=== PATIENT | female | born 1980 | race African-American/Black ===

== ENCOUNTER 2018-05-27 21:04 | Emergency (ER) | payer OTHER ==
[~2018-05-27] VITALS: Ht 165.1 cm; Wt 121.6 kg
[~2018-05-27 21:04] MED LIST: KEFLEX500 M1 PO
[2018-05-27 21:27] VITALS: BP 128/79
--- NOTE | 2018-05-27 22:06 | ED GENERAL ADULT ---
History of Present Illness General Chief Complaint: General Adult Stated Complaint: "2ND RABIES SHOT" Source: patient Exam Limitations: no limitations Vital Signs & Intake/Output Vital Signs & Intake/Output Vital Signs Date Time Temp Pulse Resp B/P B/P Pulse O2 O2 Flow FiO2 Mean Ox Delivery Rate 05/27 2215 Room Air 05/27 2127 97.0 97 20 128/79 98 Room Air ED Intake and Output 05/28 0000 05/27 1200 Intake Total Output Total Balance Patient 268 lb Weight Weight Reported by Patient Measurement Method Allergies Coded Allergies: No Known Allergies (05/24/18) Reconcile Medications Cephalexin (Keflex) 500 MG CAPSULE 1 CAP PO TID skin wound Triage Note: PT HERE FOR 2ND RABIES SHOT. DENIES ANY PAIN Triage Nurses Notes Reviewed? yes Onset: Abrupt Duration: day(s): (3), constant, continues in ED Timing: single episode today Injury Environment: home : Yes Patient currently breastfeeds: No HPI: 37-year-old female presents for her second rabies vaccine. She was seen here 3 days ago after a dog bite and received the immunoglobulin and vaccine she was told to return in 3 days for the second vaccine. She tolerated the first round well without complication. (Kyree Costello) Past History Travel History Traveled to [place] past 21 day No Medical History Any Pertinent Medical History? see below for history Neurological: NONE EENT: NONE Cardiovascular: NONE Respiratory: NONE Gastrointestinal: NONE Hepatic: NONE Renal: NONE Musculoskeletal: NONE Psychiatric: depression Endocrine: NONE Blood Disorders: NONE Cancer(s): NONE IMMIGRATION SPECIALIST/Reproductive: NONE Tetanus Vaccine: 05/24/18 Surgical History Surgical History: non-contributory Psychosocial History What is your primary language Latvian Tobacco Use: Never used ETOH Use: denies use Illicit Drug Use: denies illicit drug use Family History Hx Contributory? No (Kyree Costello) Review of Systems Review of Systems Constitutional: Reports: no symptoms. EENTM: Reports: no symptoms. Respiratory: Reports: no symptoms. Cardiovascular: Reports: no symptoms. GI: Reports: no symptoms. Genitourinary: Reports: no symptoms. Musculoskeletal: Reports: no symptoms. Skin: Reports: no symptoms. Neurological/Psychological: Reports: no symptoms. Hematologic/Endocrine: Reports: no symptoms. Immunologic/Allergic: Reports: no symptoms. All Other Systems: Reviewed and Negative (Kyree Costello) Physical Exam Physical Exam General Appearance: well developed/nourished, no apparent distress, alert, awake Head: atraumatic, normal appearance Eyes: Bilateral: normal appearance, EOMI. Ears, Nose, Throat: hearing grossly normal Neck: normal inspection, supple, full range of motion Respiratory: no respiratory distress Back: normal inspection, normal range of motion Extremities: normal inspection, normal range of motion, no edema Neurologic/Psych: no motor/sensory deficits, awake, alert, oriented x 3, normal gait, normal mood/affect Skin: intact, normal color, warm/dry Core Measures ACS in differential dx? No CVA/TIA Diagnosis: No Sepsis Present: No Sepsis Focused Exam Completed? No (Kyree Costello) Progress Differential Diagnoses I considered the following diagnoses in my evaluation of the patient: [Dog bite cellulitis, rabies exposure] Plan of Care: Patient is here for her second rabies vaccine. She tolerated the first vaccine well. Second series administered advised to return on day 7 discussed return precautions patient agrees the plan case discussed with DR WATSON HE AGREES. Initial ED EKG: none (Kyree Costello) Departure Departure Disposition: HOME OR SELF CARE Condition: Stable Clinical Impression Primary Impression: Rabies, need for prophylactic vaccination against Referrals: Patient Has No Primary Care Dr (PCP/Family) Additional Instructions: Return on day 7 FOR Next rabies vaccine return sooner if any concerns. Departure Forms: Customer Survey General Discharge Information (Kyree Costello) PA/AX SURVEY WORKER Co-Sign Statement Statement: ED Attending supervision documentation- I saw and evaluated the patient. I have also reviewed all the pertinent lab results and diagnostic results. I agree with the findings and the plan of care as documented in the PA's/AX SURVEY WORKER's documentation. x I have reviewed the ED Record and agree with the PA's/AX SURVEY WORKER's documentation. [] Additions or exceptions (if any) to the PAs/AX SURVEY WORKER's note and plan are summarized below: [] (Roman Watson MD) Critical Care Note Critical Care Note Critical Care Time: non-applicable (Kyree Costello)
== END 2018-05-27 22:32 ==
LOC: ERH 21:04
DX: Z20.3 Contact with and (suspected) exposure to rabies (principal); Z23 Encounter for immunization